=== PATIENT | male | born 1990 | race Two or more races ===

== ENCOUNTER 2023-09-25 03:29 | Emergency (ER) | payer SELFPAY ==
[2023-09-25 03:40] VITALS: BP 103/63; PULSE 95; RESP 17; TEMP 97.8; BMI 24.4
[2023-09-25 05:13] LABS: INR 0.94 (0.83-1.09); PROTHROMBIN TIME (PATIENT) 10.6 SEC (9.7-13.0)
[2023-09-25 05:16] LABS: ACTIVATED PTT 31.6 SECONDS (25.2-36.5)
[2023-09-25 05:20] LABS: BASO % 0.7 % (0-2.0); EOS % 6.3 % (0-4.5); HEMATOCRIT 23.4 % (35.4-49); HEMOGLOBIN 8.2 GM/dL (11.7-16.9); MCH 29.8 pg (25.7-33.7); MEAN CELL VOLUME 85.1 fl (80-96); MEAN PLT VOLUME 7.2 fl (7.5-11.1); MONO % 4.8 % (3.8-10.2); NEUT % 46.2 % (42.8-82.8); PLATELET COUNT 255 10^3/uL (134-434); RBC 2.75 M/mm3 (4.00-5.60); RDW 13.5 % (11.9-15.9); WHITE BLOOD COUNT 7.3 K/mm3 (4.0-10.0)
[2023-09-25 05:41] LABS: POTASSIUM 3.8 mmol/L (3.5-5.1)
[2023-09-25 05:44] LABS: ALBUMIN 3.2 g/dl (3.4-5.0); BLOOD UREA NITROGEN 8.1 mg/dL (7-18); MAGNESIUM 2.1 mg/dL (1.8-2.4)
[2023-09-25 05:47] LABS: CREATININE 0.6 mg/dL (0.55-1.3)
[2023-09-25 05:48] LABS: TOT PROT 6.5 g/dl (6.4-8.2)
[2023-09-25 05:49] LABS: BILIRUBIN,TOTAL 0.2 mg/dL (0.2-1)
== END 2023-09-25 14:36 | disposition home or self-care (01) ==
LOC: JER 03:29
DX: S22.31XA Fracture of one rib, right side, initial encounter for closed fracture (principal); R04.0 Epistaxis; F10.129 Alcohol abuse with intoxication, unspecified; Y90.8 Blood alcohol level of 240 mg/100 ml or more; Y04.8XXA Assault by other bodily force, initial encounter
CPT/HCPCS: 36415; 70450-TC; 71045-TC-FY; 71101-TC-RT-FY; 72125-TC; 80053; 80307; 83690; 83735; 85025; 85610; 85730; 86850; 86900; 86901; 93005; 93010; 99285-25